=== PATIENT | male | born 1955 | race American Indian/Alaskan Native ===

== ENCOUNTER 2021-10-11 16:33 | Outpatient (CLI) | payer MEDICAID | END 2021-10-11 16:34 | disposition critical access hospital (66) | LOC: EMS 16:33 | DX: S89.92XA Unspecified injury of left lower leg, initial encounter (principal); X50.1XXA Overexertion from prolonged static or awkward postures, initial encounter; Y93.01 Activity, walking, marching and hiking; Y92.538 Other ambulatory health services establishments as the place of occurrence of the external cause | CPT/HCPCS: A0425; A0429; A0999 ==

== ENCOUNTER 2021-10-11 16:53 | Emergency (ER) | payer MEDICAID ==
[2021-10-11] MEDS ORDERED: KETOROLAC 60 MG/2 ML VIAL IM STA (17:02)
--- NOTE | 2021-10-11 17:04 | ED Physician Documentation ---
PD HPI LOWER EXT INJURY - Stated complaint Stated Complaint: KNEE PX - Chief complaint Chief Complaint: Trauma Ext - History obtained from History obtained from: Patient, EMS - History of Present Illness PD HPI LOW EXT INJURY LOCATION: Left - Additional information Additional information: 65-year-old gentleman who is currently in alcohol rehab and has a history of issues with the left knee. A few years ago he had a procedure on the left knee, he doesn't know specifically what, but I suspect it was a meniscus issue since he had "something shaved off." For the last 6 months he has had occasional popping in the left knee and today was walking outside on uneven ground and felt a pop inside the left knee with more severe pain. No other injuries. He was a ble to ambulate back to the rehab center where EMS was called. Review of Systems Constitutional: reports: Reviewed and negative Eyes: reports: Reviewed and negative Ears: reports: Reviewed and negative Nose: reports: Reviewed and negative Throat: reports: Reviewed and negative Cardiac: reports: Reviewed and negative Respiratory: reports: Reviewed and negative PD PAST MEDICAL HISTORY - Present Medications Home Medications: Ambulatory Orders Medication Instructions Recorded Confirmed Diclofenac Sodium Dr [Voltaren] 75 mg PO BIDWM 10/11/21 10/11/21 Famotidine [Pepcid] 20 mg PO BID 10/11/21 10/11/21 Lisinopril [Zestril] 20 mg ORAL DAILY 10/11/21 10/11/21 Meloxicam [Mobic] 7.5 mg PO BID PRN #10 tablet 10/11/21 Metformin HCl [Glumetza] 250 mg PO BID 10/11/21 10/11/21 - Allergies Allergies/Adverse Reactions: Allergies Allergy/AdvReac Type Severity Reaction Status Date / Time No Known Drug Allergies Allergy Verified 10/11/21 16:58 PD ED PE NORMAL - Vitals Vital signs reviewed: Yes - General General: Alert and oriented X 3, No acute distress - HEENT HEENT: PERRL, EOMI - Neck Neck: Supple, no meningeal sign, No bony TTP - Abdomen Abdomen: Soft, Non tender - Extremities Extremities: Other (Left knee has no significant effusion clinically. Painless passive range of motion. No warmth or redness. He has mild diffuse tenderness especially anteriorly and laterally of the joint line. ACL, PCL, LCL, MCL testing is painless and intact. Grind testing is mildly painful.) - Neuro Neuro: Alert and oriented X 3, Normal speech Results - Vitals Vitals: Vital Signs - 24 hr 10/11/21 10/11/21 16:58 18:15 Temperature 37.1 C 36.9 C Heart Rate 126 H 110 H Respiratory 16 16 Rate Blood Pressure 144/78 H 130/77 O2 Saturation 97 97 Oxygen O2 Source Room air PD MEDICAL DECISION MAKING - ED course ED course: X-ray shows osteoarthritis, no fracture. Placed in knee immobilizer for comfort. He was witnessed ambulating here without any significant issues. Given a shot of Toradol here. He requested a steroid shot in the knee but discussed with him that this was probably best done with a specialist after specialty evaluation. Departure - Departure Disposition: 01 Home, Self Care Clinical Impression: Knee injury Qualifiers: Encounter type: initial encounter Laterality: left Qualified Code(s): S89.92XA - Unspecified injury of left lower leg, initial encounter Condition: Good Record reviewed to determine appropriate education?: Yes Instructions: ED Sprain Knee Prescriptions: Meloxicam [Mobic] 7.5 mg PO BID PRN #10 tablet PRN Reason: Pain Comments: Follow-up with your orthopedist on return home, call Wednesday for an appointment. Take the copy of the x-ray on CD with you to that appointment. You can walk and bear weight but I would keep the splint on while you do until you follow-up with orthopedics. You do not need to wear the splint if you are just sitting or in bed or showering but otherwise when you are up and around keep it on. Return for new or worsening symptoms. Discharge Date/Time: 10/11/21 18:54
[2021-10-11 18:15] VITALS: BP 130/77
--- NOTE | 2021-10-11 18:15 | XRAY Report ---
PROCEDURE: Knee 4 View LT INDICATIONS: knee inj TECHNIQUE: 4 views of the left knee(s) were acquired. COMPARISON: None. FINDINGS: Bones: No fractures or dislocations. No suspicious bony lesions. Moderate medial compartmental join t space narrowing. Mild patellofemoral joint space narrowing. Soft tissues: No joint effusion. No suspicious soft tissue calcifications. IMPRESSION: Mild/moderate osteoarthritis Reviewed by: Ervin Kraft MD on 10/11/2021 5:14 PM AKST Approved by: Ervin Kraft MD on 10/11/2021 5:14 PM AKST Station ID: [id number]
== END 2021-10-11 18:54 | disposition home or self-care (01) ==
LOC: ED 16:53
DX: S89.92XA Unspecified injury of left lower leg, initial encounter (principal); X50.1XXA Overexertion from prolonged static or awkward postures, initial encounter; Y93.01 Activity, walking, marching and hiking
CPT/HCPCS: 96372; 99282; 99283